=== PATIENT | male | born 1950 | race Caucasian/White ===

== ENCOUNTER 2019-07-18 09:32 | Observation (INO) | payer MEDICARE, OTHER, SELFPAY ==
[2019-07-18] VITALS (16 sets, daily range): BP systolic 121–152; BP diastolic 72–103; PULSE 69–143; RESP 16–23; TEMP 36.4–36.7; O2SAT 92–96; BMI 31.6
--- NOTE | 2019-07-18 09:51 | ED_ITS ---
Entered by Tiana Thomson, acting as scribe for Angel Parry DO HPI - Chest Pain General: Chief Complaint: Chest Pain Stated Complaint: chest pain Time Seen by Provider: 07/18/19 09:55 Source: patient Mode of arrival: ambulatory Limitations: no limitations History of Present Illness: HPI narrative: 68 yo m came to the er pov for chest pain. Onset was 4-5 days ago. Pt states that he has had the chest pain and left arm pain for 4-5 days ago. Pt states that he has had some sob. MD complaint: chest pain Pertinent past history: other (HTN) Onset (ago): day(s) (4-5 days ago) Prior episodes: No Onset: during rest Pain radiation: left arm Severity: mild Quality: dull and other (pain) Relieving factors: nothing Exacerbating factors: nothing and exertion Associated symptoms: Deny abdominal pain, dyspnea, fever(s), nausea or vomiting Risk Factors: Coronary artery disease risk factors: smoking history (quit smoking 12 years ago) and hypertension Thoracic aortic dissection risk factors: none Review of Systems Const: Denies: fever ENMT: Denies: throat pain, ear pain, nasal discharge or nasal congestion Card: Denies: chest pain, edema, shortness of breath on exertion or shortness of breath when lying down Resp: Denies: shortness of breath GI: Denies: abdominal pain, nausea or vomiting : Denies: flank pain, painful urination, urinary frequency or urinary ur gency Skin/Breast: Denies: rash or itching PFSH ED PFSH: Statuses (acute, chronic, etc) shown below reflect problem list status as previously entered and may not be historically accurate Medical History Cataract (Acute) Former smoker (Acute) quit smoking in 2010 HTN (hypertension) (Resolved) -VSS; continue to monitor vital signs -currently normotensive, will resume HCTZ, hold ACEi Obesity (BMI 30.0-34.9) (Acute) -Obesity: BMI-32 kg/m2 Obstructive sleep apnea (Acute) Surgical History S/P left knee arthroscopy (Acute) hx of L knee arthroscopy for torn meniscus in 2006 Family History Mother CAD (coronary artery disease) Stroke Brother CAD (coronary artery disease) Social History Smoking and tobacco status: former smoker Quit status (tobacco): has quit using tobacco Alcohol intake: never Lives independently: Yes Household members: spouse Marital status: Current occupational status: retired Physical Exam Const: COMMON NORMALS: no apparent distress GENERAL APPEARANCE: cooperative and comfortable ORIENTATION/CONSCIOUSNESS: Yes awake, Yes oriented to person, Yes oriented to place and Yes oriented to time HENMT: COMMON NORMALS: normocephalic, head/scalp atraumatic, hearing grossly normal bilaterally, external ears normal, EAC's normal, TM's normal bilaterally, nasal mucous membranes and turbinates normal, moist oral mucous membranes and oropharynx normal HEAD & SCALP: normocephalic and atraumatic NOSE: nasal mucous membranes and turbinates normal EXTERNAL EAR: Yes external ears normal EXTERNAL AUDITORY CANAL: EAC's normal TYMPANIC MEMBRANE: TM's normal bilaterally Eye: COMMON NORMALS: PERRL, EOMs intact bilaterally, conjunctivae normal and no scleral icterus CONJUNCTIVA: Yes conjunctivae normal PUPIL: Yes PERRL Neck/C-Spine: COMMON NORMALS: full ROM, no lymphadenopathy, supple and no JVD Lymph: LYMPHATIC: no lymphadenopathy noted and no lymphedema noted Resp: COMMON NORMALS: normal respiratory effort, no retractions, no use of accessory muscles and clear to auscultation bilaterally AUSCULTATION: clear to auscultation bilaterally Cardio: COMMON NORMALS: no JVD, regular rate, regular rhythm and no murmurs RATE: regular rate RHYTHM: regular rhythm Extremity: COMMON NORMALS: normal to inspection, normal capillary refill, no clubbing, cyanosis or edema, no calf tenderness and no pedal edema Neuro: SENSORIUM/ORIENTATION: Yes oriented to person, Yes oriented to place and Yes oriented to time Skin: COMMON NORMALS: no rashes or lesions noted GENERAL SKIN EXAM: no rashes or lesions noted Course Consultations: Time: 13:22 Consultation #2: Time: 13:30 Consultation #3: Vital Signs: Vital signs: Vital Signs Temperature 97.6 F 07/19/19 15:49 Pulse Rate 76 01/10/20 15:36 Respiratory Rate 18 07/19/19 15:49 Blood Pressure 142/87 07/19/19 15:36 Pulse Oximetry 94 07/19/19 15:49 MDM - Chest Pain Lab Data: Labs: Lab Results 07/18/19 07/18/19 07/18/19 Range/Units 09:58 09:58 09:58 WBC 7.2 (4.0-10.0) 10^3/ uL RBC 4.93 (4.1-5.3) 10^6/u L Hgb 14.4 (11.7-16.6) g/dL Hct 45.3 (42.0-52.0) % MCV 91.9 (80-94) fL MCH 29.2 (28.0-34.0) pg MCHC 31.8 (30.0-36.0) g/dL RDW 12.4 (12.1-15.1) % Plt Count 292 (130-400) 10^3/c mm MPV 10.3 (7.4-10.4) fL Neut % (Auto) 63.7 % Lymph % (Auto) 20.3 % [place] % (Auto) 12.9 % Eos % (Auto) 1.7 % Baso % (Auto) 0.8 % Neut # (Auto) 4.6 (1.8-7.7) 10^3/u L Lymph # (Auto) 1.5 (0.8-4.8) 10^3/u L [place] # (Auto) 0.9 (0.2-0.9) 10^3/u L Eos # (Auto) 0.1 (0.0-0.8) 10^3/u L Baso # (Auto) 0.1 (0.0-0.1) 10^3/u L Nucleated RBC % (a uto) 0 % Nucleated RBCs # 0.0 /100WBC PT 13.50 H (10.5-13.3) SECO NDS INR 1.00 (0.8-1.2) APTT 30.1 (23.9-36.7) SECO NDS Sodium 138 (136-145) mmol/L Potassium 4.2 (3.5-5.1) mmol/L Chloride 101 (98-107) mmol/L Carbon Dioxide 27 (22-29) mmol/L Anion Gap 14.2 (5-19) BUN 10 (8-23) mg/dL Creatinine 0.6 L (0.7-1.2) mg/dL GFR Calculation 134.0 H (90-130) mL/min Glucose 106 (74-106) mg/dL Calcium 9.3 (8.8-10.2) mg/Dl Total Bilirubin 0.3 (0.15-1.2) mg/dL AST 14 (0-40) U/L ALT 10 (0-41) U/L Alkaline Phosphata se 84 (40-130) IU/L Troponin T Baselin e (0-15) ng/mL Troponin T 120 Min marifer (0-15) ng/mL Delta Troponin T (0-10) ABS# Total Protein 6.4 L (6.6-8.7) g/dL Albumin 3.9 (3.5-5.2) g/dL Globulin 2.5 (1.3-4.6) g/dL 07/18/19 07/18/19 Range/Units 09:58 12:00 WBC (4.0-10.0) 10^3/ uL RBC (4.1-5.3) 10^6/u L Hgb (11.7-16.6) g/dL Hct (42.0-52.0) % MCV (80-94) fL MCH (28.0-34.0) pg MCHC (30.0-36.0) g/dL RDW (12.1-15.1) % Plt Count (130-400) 10^3/c mm MPV (7.4-10.4) fL Neut % (Auto) % Lymph % (Auto) % [place] % (Auto) % Eos % (Auto) % Baso % (Auto) % Neut # (Auto) (1.8-7.7) 10^3/u L Lymph # (Auto) (0.8-4.8) 10^3/u L [place] # (Auto) (0.2-0.9) 10^3/u L Eos # (Auto) (0.0-0.8) 10^3/u L Baso # (Auto) (0.0-0.1) 10^3/u L Nucleated RBC % (a uto) % Nucleated RBCs # /100WBC PT (10.5-13.3) SECO NDS INR (0.8-1.2) APTT (23.9-36.7) SECO NDS Sodium (136-145) mmol/L Potassium (3.5-5.1) mmol/L Chloride (98-107) mmol/L Carbon Dioxide (22-29) mmol/L Anion Gap (5-19) BUN (8-23) mg/dL Creatinine (0.7-1.2) mg/dL GFR Calculation (90-130) mL/min Glucose (74-106) mg/dL Calcium (8.8-10.2) mg/Dl Total Bilirubin (0.15-1.2) mg/dL AST (0-40) U/L ALT (0-41) U/L Alkaline Phosphata se (40-130) IU/L Troponin T Baselin e 7 (0-15) ng/mL Troponin T 120 Min marifer 6.00 (0-15) ng/mL Delta Troponin T -1.00 L (0-10) ABS# Total Protein (6.6-8.7) g/dL Albumin (3.5-5.2) g/dL Globulin (1.3-4.6) g/dL Imaging Data^: CXR: Radiologist's impression: [address] [address] XRay Report Signed Patient: Elton Lal JMR#: [id number] : 1Acct:[id number] Age/Sex: 68 / MADM Date: 07/18/19 Loc: ER Attending Dr: Ordering Physician: Angel Parry DO Date of Service: 07/18/19 Procedure(s): XR chest 1V portable [id number] Accession Number(s): [id number] Report Number: [id number] WS: [id number] Portable AP upright chest, 07/18/2019 Clinical Data: chest pain Comparison: PA and lateral chest, 06/19/2014. Findings: No nodules, masses or effusions are seen. The heart is normal. The pulmonary vascularity is not increased. No pneumonia or pneumothorax is seen. The diaphragms are flattened. There is left pleural reaction and minimal left lateral lower pleural thickening unchanged. There is a monitor lead on the chest wall. The aortic arch and descending aorta are minimally tortuous. XR/XR chest 1V portable [id number] Impression: Hyperinflation and atherosclerosis. Dictated By:Ann Marie Lua MD Discharge Plan Discharge Patient Disposition: Admitted As Inpatient Admit Provider: Caren Sosa Clinical Impression: Chest pain Condition: Stable Discharge Orders: Discharge Order (Routine); Ordered 07/19/19 Ordered By: Caren Sosa Referrals: Milla Kan MD [Primary Care Provider] - 4-7 days (You have a follow up appointment with Dr. Arias on Jul 23 at 10am) Discharge Diet: Low Salt Discharge Activity: Resume usual activity Patient Instructions: Chest Pain - Noncardiac, Nitroglycerin, Rapid Release (By mouth), Hypertension, Obesity (DC) Additional Instructions: -Please seek medical attention immediately should any of your symptoms return Interventions: ED Discharge Assessment Last Done: 07/18/19 15:38 Discharge Date/Time: 07/18/19 15:38 Coding Level of Care Code ED Corrections Unit Supervisor for Chg Fwd Exam Problem Focused The documentation recorded by the Berto bain Stephanie Lyn, accurately reflects the service I personally performed and the decisions made by Brinda hernandez Curtis L, DO Jul 18, 2019 09:32
--- NOTE | 2019-07-18 10:22 | ECG_ITS ---
Measurements Intervals [place] Rate: 76 P: 69 ID: [id number] QRS: 29 QRSD: 89 T: 64 QT: 379 QTc: 427 SINUS RHYTHM SEPTAL MYOCARDIAL INFARCTION , PROBABLY OLD [40+ ms Q WAVE IN V1/V2] Compared to ECG 01/14/2018 05:01:02 Myocardial infarct finding now present Sinus arrhythmia no longer present Electronically Signed On 07-18-2019 13:47:32 EMPLOYMENT APPEALS EXAMINER by Ro Santiago M.D. [id number]
--- NOTE | 2019-07-18 10:22 | XR_ITS ---
WS: [id number] Portable AP upright chest, 07/18/2019 Clinical Data: chest pain Comparison: PA and lateral chest, 06/19/2014. Findings: No nodules, masses or effusions are seen. The heart is normal. The pulmonary vascularity is not increased. No pneumonia or pneumothorax is seen. The diaphragms are flattened. There is left ple ural reaction and minimal left lateral lower pleural thickening unchanged. There is a monitor lead on the chest wall. The aortic arch and descending aorta are minimally tortuous. XR/XR chest 1V portable [id number] Impression: Hyperinflation and atherosclerosis.
[2019-07-18 10:41] LABS: Basophils # 0.1 10^3/uL (0.0-0.1); Basophils % 0.8 %; Eosinophils # 0.1 10^3/uL (0.0-0.8); Eosinophils % 1.7 %; Hematocrit 45.3 % (42.0-52.0); Hemoglobin 14.4 g/dL (11.7-16.6); Lymphocytes # 1.5 10^3/uL (0.8-4.8); Lymphocytes % 20.3 %; Mean Corpuscular HGB Conc 31.8 g/dL (30.0-36.0); Mean Corpuscular Hemoglobin 29.2 pg (28.0-34.0); Mean Corpuscular Volume 91.9 fL (80-94); Mean Platelet Volume 10.3 fL (7.4-10.4); Monocytes # 0.9 10^3/uL (0.2-0.9); Monocytes % 12.9 %; Neutrophils # 4.6 10^3/uL (1.8-7.7); Neutrophils % 63.7 %; Nucleated Red Blood Cells % 0 %; Platelet Count 292 10^3/cmm (130-400); Red Blood Count 4.93 10^6/uL (4.1-5.3); Red Cell Distribution Width 12.4 % (12.1-15.1); White Blood Count 7.2 10^3/uL (4.0-10.0)
[2019-07-18] MEDS: sodium chloride 0.9% 1,000 ML 999 ML IV (10:44)
[2019-07-18] MEDS: aspirin 325 mg Tablet PO (10:45)
[2019-07-18] MEDS: nitroglycerin 1 gm/inch oint Pkt 1 INCH TOPICAL (10:46)
[2019-07-18 10:52] LABS: Partial Thromboplastin Time 30.1 SECONDS (23.9-36.7)
[2019-07-18 10:56] LABS: Troponin(5th) Baseline 7 ng/mL (0-15)
[2019-07-18 11:22] LABS: Alanine Aminotransferase 10 U/L (0-41); Albumin Level 3.9 g/dL (3.5-5.2); Alkaline Phosphatase 84 IU/L (40-130); Anion Gap 14.2 (5-19); Aspartate Amino Transferase 14 U/L (0-40); Blood Urea Nitrogen 10 mg/dL (8-23); Calcium 9.3 mg/Dl (8.8-10.2); Carbon Dioxide 27 mmol/L (22-29); Chloride 101 mmol/L (98-107); Globulin 2.5 g/dL (1.3-4.6); Glucose 106 mg/dL (74-106); Potassium 4.2 mmol/L (3.5-5.1); Sodium 138 mmol/L (136-145); Total Bilirubin 0.3 mg/dL (0.15-1.2); Total Protein 6.4 g/dL (6.6-8.7)
--- NOTE | 2019-07-18 12:22 | ECG_ITS ---
Measurements Intervals [place] Rate: 67 P: 24 VA: 174 QRS: 31 QRSD: 84 T: 53 QT: 389 QTc: 413 SINUS RHYTHM LOW QRS VOLTAGE IN EXTREMITY LEADS [QRS DEFLECTION < 0.5 mV IN LIMB LEADS] SEPTAL MYOCARDIAL INFARCTION [40+ ms Q WAVE IN V1/V2], PROBABLY OLD Compared to ECG 07/18/2019 12:30:05 Myocardial infarct finding now present Sinus arrhythmia no longer present Electronically Signed On 07-18-2019 19:05:49 WASTEWATER TECHNICIAN by Ro Santiago M.D. [id number]
[2019-07-18] MEDS: sodium chloride 0.9% 500 ML 999 ML IV (13:30)
--- NOTE | 2019-07-18 14:13 | PM.HP ---
Providers/Chief Complaint Primary Care Provider: Milla Kan MD Chief Complaint: chest pain History of Present Illness Elton Lal is a 68 year old male with PMHx of HTN, Former smoker, Obesity, LOAN, presents from home for evaluation of chest pain that has been ongoing x 4-5 days. He is unable to fully describe the chest discomfort other than nagging pain, states that it was left-sided with radiation to the left arm, constant, rated as 2 out of 10; with some associated mild shortness of breath with exertion and feeling hot. He denies any lightheadedness, diaphoresis, cough, fever/chills, abdominal pain, nausea/vomiting, lower extremity swelling, changes to his urination or bowel habits, changes in his appetite. He denies any prior episodes of the same. He is a former smoker, quit approximately 9 years ago. He does have a positive family history of heart disease in both his brothers and in his mother. He denies having had any cardiac work-up in the past including stress testing. He intermittently checks his blood pressure at home though he admits that it is been a while since he has done this. He did not take his blood pressure medications prior to coming to the hospital. He did drive himself to the hospital accompanied by his . He did not take any medications such as nitroglycerin or aspirin prior to coming to the hospital. He is currently chest pain-free during my evaluation in the ER, is at bedside. He was initially quite hypertensive with noted blood pressure of 130s over 100s. He is currently normotensive. Initial troponins are negative, chest pain was relieved after nitroglycerin ointment. I discussed having stress testing done which patient is agreeable to. Due to being high risk for possible CAD patient is being admitted for further evaluation. Review of Systems Const: Denies: fever, chills, body aches, change in appetite or fatigue Eyes: Denies: change in vision ENMT: Denies: dry mouth Card: Reports: chest pain ( nagging left sided chest discomfrort) and shortness of breath on exertion (mild); Denies: palpitations, edema or lightheadedness Resp: Denies: productive cough or pain on inspiration GI: Denies: abdominal pain, nausea, vomiting, difficulty swallowing, constipation or blood in stool : Denies: difficulty urinating or blood in urine Musc: Reports: extremity pain (left arm pain) Skin/Breast: Denies: rash Neuro: Denies: headache or weakness in extremities Medications/Allergies Home Medications Medication Instructions Recorded Confirmed Last Taken Type aspirin [Aspir-81] 81 mg PO DAILY 07/18/19 07/18/19 07/17/19 History enalapril-hydrochlorothiazide 1 tab PO DAILY 07/18/19 07/18/19 07/17/19 History ketorolac See Rx Instructions .ROUTE .COMPLEX 07/18/19 07/18/19 07/17/19 History Allergies Allergy/AdvReac Type Severity Reaction Status Date / Time No Known Drug Allergies Allergy Unknown Verified 07/18/19 09:41 PFSH Acute PFSH: Statuses (acute, chronic, etc) shown below reflect problem list status as previously entered and may not be historically accurate Medical History (Updated 07/18/19 @ 14:27 by Caren Sosa MD) Former smoker (Acute) quit smoking in 2010 HTN (hypertension) (Acute) Obesity (BMI 30.0-34.9) (Acute) Obstructive sleep apnea (Acute) Surgical History (Updated 07/18/19 @ 14:22 by Caren Sosa MD) S/P left knee arthroscopy (Acute) hx of L knee arthroscopy for torn meniscus in 2006 Family History (Updated 07/18/19 @ 14:23 by Caren Sosa MD) Mother CAD (coronary artery disease) Stroke Brother CAD (coronary artery disease) Social History (Updated 07/18/19 @ 14:24 by Caren Sosa MD) Smoking and tobacco status: former smoker Quit status (tobacco): has quit using tobacco Alcohol intake: never Substance/Drug Use: never Lives independently: Yes Household members: spouse Marital status: Current occupational status: retired Vitals/I&O/Wt Last Vital Signs Temp 97.6 F 07/18/19 09:42 Pulse 75 07/18/19 12:59 Resp 16 07/18/19 12:59 BP 121/80 07/18/19 12:59 Pulse Ox 93 07/18/19 12:59 Weight last 48 hrs Weight 94.347 kg Physical Exam Const: COMMON NORMALS: no apparent distress and oriented x3 GENERAL APPEARANCE: cooperative and comfortable NUTRITIONAL APPEARANCE: obese ORIENTATION/CONSCIOUSNESS: Yes awake HENMT: COMMON NORMALS: normocephalic, head/scalp atraumatic, hearing grossly normal bilaterally and moist oral mucous membranes HEAD & SCALP: normocephalic and atraumatic Eye: COMMON NORMALS: PERRL, EOMs intact bilaterally and conjunctivae normal CONJUNCTIVA: Yes conjunctivae normal PUPIL: Yes PERRL Neck/C-Spine: COMMON NORMALS: full ROM GENERAL: Yes normal visual inspection and Yes trachea midline Chest: COMMONS NORMALS: inspection of chest normal and palpation of chest normal CHEST: Yes symmetrical chest wall rise Resp: COMMON NORMALS: normal respiratory effort, no retractions, no use of accessory muscles and clear to auscultation bilaterally EFFORT & INSPECTION: Yes able to speak in complete sentences, Yes symmetric chest movement and No tachypneic AUSCULTATION: clear to auscultation bilaterally Cardio: COMMON NORMALS: regular rate, regular rhythm, S1 normal heart sound, S2 normal heart sound and no murmurs RATE: regular rate RHYTHM: regular rhythm HEART SOUNDS: S1 normal and S2 normal GI: COMMON NORMALS: normal to inspection, nondistended, normoactive bowel sounds, soft to palpation and non-tender INSPECTION: Yes central obesity PALPATION: Yes soft Extremity: COMMON NORMALS: normal to inspection, full ROM and no clubbing, cyanosis or edema; negative for no pedal edema Neuro: COMMON NORMALS: oriented x3, moves all extremities, no focal motor deficits and no sensory deficits noted Psych: COMMON NORMALS: mental status grossly normal, thought process normal, cooperative, affect normal and speech normal SPEECH: Yes normal speech THOUGHT PROCESS: normal thought process Skin: COMMON NORMALS: no rashes or lesions noted, no jaundice, no petechiae and no mottling GENERAL SKIN EXAM: no rashes or lesions noted Data Imaging^: CXR: My impression: unremarkable for any acute findings Other Data: Other data: Noted troponin A&P Assessment and plan (1) Chest pain in adult: -chest pain, from history provided, sounds typical -risk factors for CAD include age, hx of smoking, +FHx, obesity, HTN -trend troponins, serial ECGs -ANNABELLE -monitor vital signs -telemetry monitoring -order lipid panel, TSH, A1c for risk stratification -resume aspirin -is currently chest pain free -stress testing in AM, keep NPO after midnight Status: Acute Code(s): R07.9 - Chest pain, unspecified (2) HTN (hypertension): -monitor vital signs -currently normotensive, will resume HCTZ, hold ACEi Status: Acute Code(s): I10 - Essential (primary) hypertension (3) Obesity (BMI 30.0-34.9): -Obesity: BMI-32 kg/m2 Status: Acute Code(s): E66.9 - Obesity, unspecified Additional A&P Information Additional A&P Information: -Former smoker -hx of LOAN -cardiac diet as tolerated -encourage ambulation as tolerated -DVT ppx not needed as low risk -Dispo: home -Code status: FULL code Attestations Medical Necessity Statement*: Elton Lal's hospital stay will be less than 2 midnights for evaluation of typical chest pain including stress testing, telemetry monitoring. Time Spent in Patient Care: Greater than 35 minutes (>than 50% of time spent in counselling and/or direct pt care on unit). Coding Level of Care Code Acute Nail Welter for Chg Fwd Diagnoses Chest pain in adult R07.9 HTN (hypertension) I10 Obesity (BMI 30.0-34.9) E66.9
--- NOTE | 2019-07-18 14:36 | ECG_ITS ---
NAME OF STUDY: LEXISCAN SESTAMIBI STRESS TEST INDICATION: TYPICAL CHEST PAIN, PROCEDURE: At the baseline, the EKG revealed normal sinus rhythm with a poor R wave progression. Some nonspecific T wave changes. The baseline blood pressure was 129/77 mm Hg with a heart rate of 72 beats/min. Lexiscan was infused over a period of 20 seconds. A total of 0.4 milligrams of Lexiscan was infused. The stress phase was continued for a total of 5 minutes. Heart rate at the end of the stress phase was 85 with a blood pressure of 127/70. The EKG at the peak infusion revealed no significant changes. Sestamibi was injected 20 seconds after the Lexiscan infusion. Blood pressure at the end of the recovery phase was not performed with a heart rate of 84 per minute. CONCLUSION: 1. No significant EKG changes with the LexiScan infusion 2. No LexiScan induced chest pain or cardiac arrhythmia 3. Normal blood pressure and heart rate response 4. Sestamibi/sestamibi perfusion scan pending; see separate report. Electronically Signed On 07-19-2019 15:03:39 BINDING PRINTER by Dung Marroquin M.D. [id number]
--- NOTE | 2019-07-18 16:22 | ECG_ITS ---
Measurements Intervals [place] Rate: 65 P: 23 SC: 156 QRS: 19 QRSD: 102 T: 62 QT: 428 QTc: 446 SINUS RHYTHM WITH SINUS ARRHYTHMIA LOW QRS VOLTAGE IN PRECORDIAL LEADS [QRS DEFLECTION < 1.0 mV IN CHEST LEADS] Compared to ECG 01/14/2018 05:01:02 No significant changes Electronically Signed On 07-18-2019 13:56:33 STATE DIRECTOR by Ro Santiago M.D. [id number]
[2019-07-18 19:27] LABS: Troponin 5 6HR 7.48 ng/L (0-15)
[2019-07-19] VITALS (8 sets, daily range): BP systolic 124–142; BP diastolic 73–87; PULSE 67–85; RESP 18–20; TEMP 36.4–36.6; O2SAT 84–97
--- NOTE | 2019-07-19 | NMCV_ITS ---
NM MIBI/MIBI Stress/Rest [id number] [place], Max Age: 68 Gender: M : 1950 Exam Date: 07/19/2019 06:47 Ordering Phys: Caren Sosa MD Technologist: KAVIN Briggs Exam Location: [facility] Indications: Chest Pain STRESS TEST Please see separate stress test report in [facility] for full findings IMAGE PROTOCOL Rest/Stress 1 Lexiscan Day Radiopharmaceutical Dose (mCi) Administration Site Administered by Rest: Tc-99m 10.1 IV KAVIN Briggs Sestamibi Stress:Tc-99m 32.6 IV KAVIN Briggs Sestamibi Rest: 19-Jul-2019 60 Discovery 630 Stress: 19-Jul-2019 60 Discovery 630 0.4mg Lexiscan. Images obtained in supine and prone position. SPECT RESULTS Technical Quality: Good Raw Data Analysis: Normal, Soft tissue attenuation Image Corrections: No attenuation or motion correction applied Summed Stress Score: 5 Summed Rest Score: 8 Summed Difference Score: 0 PERFUSION FINDINGS Large area of patchy decreased tracer uptake noted in basal to distal inferior and inferoseptal distal apical and basal anterior wall on the rest images which improved significantly over stress images suggestive of artifact. FUNCTIONAL RESULTS (calculated via Gated SPECT) Stress Image LV EF (%): 66 Stress EDV (mL):97 TID: 1.23 Stress ESV (mL):33 Rest Image LV EF (%): 66 FUNCTIONAL FINDINGS: There is normal left ventricular systolic function. IMPRESSIONS This study is negative for ischemia. TID ratio is elevated which could be secondary to left ventricle hypertrophy/subendocardial ischemia in the absence of other parameters. EKG segment will be documented separately. Connie Angela MD (Electronically Signed) Final Date: 19 July 2019 13:15 S
[2019-07-19 06:33] LABS: Chol HDL Ratio 3.86 mg/dL (1.0-5.00); Cholesterol 166 mg/dL (0-200); HDL Cholesterol 43 mg/dL (60-100); LDL Cholesterol Calculated 104 mg/dL (50-129); LDL HDL Ratio 2.42 RATIO (0.00-3.22); Triglycerides 94 mg/dL (0-150)
[2019-07-19 08:02] LABS: Thyroid Stimulating Hormone 2.35 uIU/mL (0.27-4.20)
[2019-07-19] MEDS: regadenoson 0.4 Mg/5 ml Syringe IVP (08:02)
--- NOTE | 2019-07-19 08:39 | P.DS_ITS ---
Discharge Providers Date of Admission: 07/18/19 13:22 Date of Discharge: 07/19/19 Attending Provider at Admission: Caren Sosa MD Attending Provider at Discharge: Caren Sosa MD Primary Care Provider: Milla Kan MD Diagnoses at Discharge Discharge Diagnosis (1) Chest pain in adult: Status: Acute Problem details: -chest pain, from history provided, sounds typical -risk factors for CAD include age, hx of smoking, +FHx, obesity, HTN -troponins noted with negative delta x 6hrs, serial ECGs reviewed -ANNABELLE -VSS;continue to monitor vital signs -telemetry monitoring -noted lipid panel, TSH, A1c -on aspirin -is currently chest pain free -stress testing in AM; negative (2) HTN (hypertension): Status: Acute Problem details: -VSS; continue to monitor vital signs -currently normotensive, will resume HCTZ, hold ACEi Qualifiers: Hypertension type: essential hypertension Qualified Code(s): I10 - Essential (primary) hypertension (3) Obesity (BMI 30.0-34.9): Status: Acute Problem details: -Obesity: BMI-32 kg/m2 Other Information Additional DC diagnoses/information: -Former smoker -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 He had his troponins trended and serial EKGs done as part of the chest pain rule out ACS work-up. Due to concern that he may have had an angina equivalent he had a chemical stress test done is negative for coronary ischemia. He has been chest pain-free during his hospital stay. He has been hemodynamically stable, afebrile and ambulatory. Lipid panel, TSH are within normal limits. He will need to follow-up with his primary care provider within 1 week and is encouraged to seek medical attention immediately should any of his symptoms return. Physical Exam Const: COMMON NORMALS: no apparent distress and oriented x3 GENERAL ABDIRAHMAN EARANCE: cooperative and comfortable NUTRITIONAL APPEARANCE: obese ORIENTATION/CONSCIOUSNESS: Yes awake HENMT: COMMON NORMALS: normocephalic, head/scalp atraumatic, hearing grossly normal bilaterally and moist oral mucous membranes HEAD & SCALP: normocephalic and atraumatic Eye: COMMON NORMALS: PERRL, EOMs intact bilaterally and conjunctivae normal CONJUNCTIVA: Yes conjunctivae normal PUPIL: Yes PERRL Neck/C-Spine: COMMON NORMALS: full ROM GENERAL: Yes normal visual inspection and Yes trachea midline Chest: COMMONS NORMALS: inspection of chest normal and palpation of chest normal CHEST: Yes symmetrical chest wall rise Resp: COMMON NORMALS: normal respiratory effort, no retractions, no use of accessory muscles and clear to auscultation bilaterally EFFORT & INSPECTION: Yes able to speak in complete sentences, Yes symmetric chest movement and No tachypneic AUSCULTATION: clear to auscultation bilaterally Cardio: COMMON NORMALS: regular rate, regular rhythm, S1 normal heart sound, S2 normal heart sound and no murmurs RATE: regular rate RHYTHM: regular rhythm HEART SOUNDS: S1 normal and S2 normal GI: COMMON NORMALS: normal to inspection, nondistended, normoactive bowel sounds, soft to palpation and non-tender INSPECTION: Yes central obesity PALPATION: Yes soft Extremity: COMMON NORMALS: normal to inspection, full ROM and no clubbing, cyanosis or edema; negative for no pedal edema Neuro: COMMON NORMALS: oriented x3, moves all extremities, no focal motor deficits and no sensory deficits noted Psych: COMMON NORMALS: mental status grossly normal, thought process normal, cooperative, affect normal and speech normal SPEECH: Yes normal speech THOUGHT PROCESS: normal thought process Skin: COMMON NORMALS: no rashes or lesions noted, no jaundice, no petechiae and no mottling GENERAL SKIN EXAM: no rashes or lesions noted Discharge Data Data Completed and Pending: Completed Studies During Hospitalization Category Date Time Status XR chest 1V neto ble [id number] Urgent Exams 07/18/19 10:22 Completed Pending at discharge Category Date Time Status Sestamibi Stress Test Request Amanda ne Exams 07/18/19 14:36 Ordered Hemoglobin A1C Ro utine Lab 07/19/19 05:40 Received NM misty perf SPECT r&s* [id number] Routin e Nuc Med 07/19/19 Ordered Labs from last 24 hours 07/19/19 07/19/19 07/18/19 05:40 05:40 16:30 WBC RBC Hgb Hct MCV MCH MCHC RDW Plt Count MPV Neut % (Auto) Lymph % (Auto) [place] % (Auto) Eos % (Auto) Baso % (Auto) Neut # (Auto) Lymph # (Auto) [place] # (Auto) Eos # (Auto) Baso # (Auto) Nucleated RBC % (a uto) Nucleated RBCs # PT INR APTT Sodium Potassium Chloride Carbon Dioxide Anion Gap BUN Creatinine GFR Calculation Glucose Calcium Total Bilirubin AST ALT Alkaline Phosphata se Troponin I 6 Hour 7.48 Troponin I Hi Sens Del Not Reportable Troponin T Baselin e Troponin T 120 Min teller Delta Troponin T Total Protein Albumin Globulin Triglycerides 94 Cholesterol 166 LDL Cholesterol, C alc 104 HDL Cholesterol 43 L LDL/HDL Ratio 2.42 Cholesterol/HDL Ra kaden 3.86 TSH 2.35 07/18/19 07/18/19 07/18/19 12:00 09:58 09:58 WBC RBC Hgb Hct MCV MCH MCHC RDW Plt Count MPV Neut % (Auto) Lymph % (Auto) [place] % (Auto) Eos % (Auto) Baso % (Auto) Neut # (Auto) Lymph # (Auto) [place] # (Auto) Eos # (Auto) Baso # (Auto) Nucleated RBC % (a uto) Nucleated RBCs # PT INR APTT Sodium 138 Potassium 4.2 Chloride 101 Carbon Dioxide 27 Anion Gap 14.2 BUN 10 Creatinine 0.6 L GFR Calculation 134.0 H Glucose 106 Calcium 9.3 Total Bilirubin 0.3 AST 14 ALT 10 Alkaline Phosphata se 84 Troponin I 6 Hour Troponin I Hi Sens Del Troponin T Baselin e 7 Troponin T 120 Min teller 6.00 Delta Troponin T -1.00 L Total Protein 6.4 L Albumin 3.9 Globulin 2.5 Triglycerides Cholesterol LDL Cholesterol, C alc HDL Cholesterol LDL/HDL Ratio Cholesterol/HDL Ra kaden TSH 07/18/19 07/18/19 09:58 09:58 WBC 7.2 RBC 4.93 Hgb 14.4 Hct 45.3 MCV 91.9 MCH 29.2 MCHC 31.8 RDW 12.4 Plt Count 292 MPV 10.3 Neut % (Auto) 63.7 Lymph % (Auto) 20.3 [place] % (Auto) 12.9 Eos % (Auto) 1.7 Baso % (Auto) 0.8 Neut # (Auto) 4.6 Lymph # (Auto) 1.5 [place] # (Auto) 0.9 Eos # (Auto) 0.1 Baso # (Auto) 0.1 Nucleated RBC % (a uto) 0 Nucleated RBCs # 0.0 PT 13.50 H INR 1.00 APTT 30.1 Sodium Potassium Chloride Carbon Dioxide Anion Gap BUN Creatinine GFR Calculation Glucose Calcium Total Bilirubin AST ALT Alkaline Phosphata se Troponin I 6 Hour Troponin I Hi Sens Del Troponin T Baselin e Troponin T 120 Min teller Delta Troponin T Total Protein Albumin Globulin Triglycerides Cholesterol LDL Cholesterol, C alc HDL Cholesterol LDL/HDL Ratio Cholesterol/HDL Ra kaden TSH Vitals: Last Vital Signs Temp 97.8 F 07/19/19 04:29 Pulse 85 07/19/19 08:16 Resp 20 H 07/19/19 04:29 BP 124/74 07/19/19 08:16 Pulse Ox 97 07/19/19 04:29 Discharge Plan Discharge Patient Disposition: Home, Self-Care Condition: Stable Prescriptions: New nitroglycerin 0.4 mg tablet, sublingual 0.4 mg SUBLINGUAL Q5M PRN (Reason: chest pain) Qty: 30 RF: 0 Continued enalapril-hydrochlorothiazide 5-12.5 mg tablet 1 tab PO DAILY RF: 0 Aspir-81 81 mg Tablet,Delayed Release (Dr/Ec) 81 mg PO DAILY RF: 0 ketorolac 0.5 % drops See Rx Instructions .ROUTE .COMPLEX RF: 0 Discharge Orders: Discharge Order (Routine); Ordered 07/19/19 Ordered By: Caren Sosa Referrals: Milla Kan MD [Primary Care Provider] - 4-7 days Discharge Diet: Low Salt Discharge Activity: Resume usual activity Activity Restrictions/Additional Instructions: -Please seek medical attention immediately should any of your symptoms return Discharge Attestations Time Spent in Discharge Care*: greater than 30 min Specific Discharge Activities: Specific discharge activities: educating patient and evaluating patient/reviewing data Quality Metrics Clinical Quality Measures During this hospital stay, did patient experience: None Coding Level of Care Code Acute Area Operations Director for Chg Fwd Exam Problem Focused Diagnoses Chest pain in adult R07.9 HTN (hypertension) I10 Hypertension type: essential hypertension Obesity (BMI 30.0-34.9) E66.9
[2019-07-19 08:40] LABS: Estmated Average Glucose 117; Hemoglobin A1C 5.7 % (4.0-6.0)
[2019-07-19] MEDS: aspirin 81 mg Chew Tablet PO (09:00)
[2019-07-19] MEDS: hydroCHLOROthiazide 25 mg Tablet 12.5 MG PO (09:00)
--- NOTE | 2019-07-19 09:04 | PC.NURSE ---
pt off floor for testing
== END 2019-07-19 16:13 | disposition home or self-care (01) ==
LOC: ER 14:34 → MEDSURG 15:21
PROVIDERS: Admitting Provider Family Medicine; Emergency Provider Family Medicine; Family Provider Family Medicine; PCP Family Medicine; Visit Provider Family Medicine
DX: R07.89 Other chest pain (principal); I10 Essential (primary) hypertension; E66.9 Obesity, unspecified; Z68.32 Body mass index [BMI] 32.0-32.9, adult; G47.33 Obstructive sleep apnea (adult) (pediatric); Z87.891 Personal history of nicotine dependence; Z79.82 Long term (current) use of aspirin; Z96.652 Presence of left artificial knee joint; Z82.49 Family history of ischemic heart disease and other diseases of the circulatory system
CPT/HCPCS: 36415; 71045; 78452; 80053; 80061; 83036; 84443; 84484; 85025; 85610; 85730; 93005; 93017; 96361; 96374; 96375; 99283; 99285; A9500; G0378; J2785; J7030; J7040

== ENCOUNTER 2021-06-17 09:37 | Emergency (ER) | payer MEDICARE, OTHER, SELFPAY ==
[2021-06-17 09:45] VITALS: BP 156/84; PULSE 95; RESP 20; TEMP 36.7; O2SAT 88; BMI 32.5
--- NOTE | 2021-06-17 09:59 | ED_ITS ---
HPI - SOB/Dyspnea General: Chief Complaint: Shortness of Breath/Dyspnea Stated Complaint: LOW O2 Time Seen by Provider: 06/17/21 09:58 History of Present Illness: HPI Narrative: 70-year-old presents to shortness of breath. He is a previous smoker. Reports this started proximally 2 to 3 days ago. Does report dry cough. Denies lower extremity pain or swelling or chest pain. Denies fevers or chills. Reports he was seen at primary care earlier today and told he had low oxygen saturation to 88 on room air and presented emergency department. Review of Systems Narrative: - CONSTITUTIONAL: Denies weight loss, fever and chills. - HEENT: Denies changes in vision and hearing. - RESPIRATORY: As above - CV: Denies palpitations and CP. - GI: Denies abdominal pain, nausea, vomiting and diarrhea. - : Denies dysuria and urinary frequency. - MSK: Denies myalgia and joint pain. - SKIN: Denies rash and pruritus. - NEUROLOGICAL: Denies headache, weakness, numbness and syncope. - PSYCHIATRIC: Denies suicidal ideation [facility] ED PFSH: Medical History (Updated 06/17/21 @ 12:32 by Wang Palacio MD) Cataract Former smoker quit smoking in 2010 HTN (hypertension) -VSS; continue to monitor vital signs -currently normotensive, will resume HCTZ, hold ACEi Obesity (BMI 30.0-34.9) -Obesity: BMI-32 kg/m2 Obstructive sleep apnea Surgical History S/P left knee arthroscopy hx of L knee arthroscopy for torn meniscus in 2006 Family History Mother CAD (coronary artery disease) Stroke Brother CAD (coronary artery disease) Social History Smoking and tobacco status: former smoker Quit status (tobacco): has quit using tobacco Alcohol intake: never Lives independently: Yes Household members: spouse Marital status: Current occupational status: retired Physical Exam Narrative: EXAM NARRATIVE: - GENERAL: Alert and oriented x 3. No acute distress. Well-nourished. - EYES: EOMI. Anicteric. - HENT: Atraumatic, no C-spine tenderness. Moist mucous membranes. No scleral icterus. No cervical lymphadenopathy. - LUNGS: Mild bilateral wheezing. No accessory muscle use. Equal lung sounds bilaterally. No respiratory distress. - CARDIOVASCULAR: Regular rate and rhythm. No murmur. No JVD. - ABDOMEN: Soft, non-tender and non-distended. Negative CVA tenderness bilaterally, no rebound or guarding, negative Elizabeth sign. No palpable masses. - EXTREMITIES: No edema. Non-tender. - SKIN: No rashes or lesions. Warm. - NEUROLOGIC: No meningismus or focal neurological deficits. CN II-XII grossly intact. - PSYCHIATRIC: Cooperative. Appropriate mood and affect. Course Vital Signs: Vital signs: Vital Signs Temperature 98.1 F 06/17/21 09:45 Pulse Rate 86 06/17/21 12:02 Respiratory Rate 16 06/17/21 12:02 Blood Pressure 153/81 06/17/21 10:30 Pulse Oximetry 96 06/17/21 12:02 MDM - SOB/Dyspnea MDM Narrative: Medical decision making narrative: 70-year-old male presented shortness of breath. Physical exam does reveal bilateral wheezing. Initially does require 1 L by nasal cannula saturation in the 90s however after albuterol and steroids he was ambulated without desaturation satting well on room air. EKG and troponin do not reveal any sign of acute ischemia or acute abnormality. X-ray does not reveal pneumothorax or consolidation. Remainder of lab work is unremarkable. Prescription for albuterol and steroids provided. At this time I believe patient would be safe for discharge and outpatient follow-up. Return precautions provided. Plan was reviewed with the patient who expressed understanding. Questions answered. Patient will follow up with PCP. Patient discharged in stable condition. Lab Data: Labs: Lab Results 06/17/21 06/17/21 06/17/21 10:25 10:25 10:25 WBC 8.0 10^3/uL 10^3/ uL (4.0-10.0) RBC 4.77 10^6/uL 10^6 /uL (4.1-5.3) Hgb 13.9 g/dL g/dL (11.7-16.6) Hct 43.9 % % (42.0-52.0) MCV 92.0 fl fl (80-94) MCH 29.1 pg pg (28.0-34.0) MCHC 31.7 g/dL g/dL (30.0-36.0) RDW 12.3 % % (12.1-15.1) Plt Count 270 10^3/cmm 10^3 /cmm (130-400) MPV 10.8 fL H fL (7.4-10.4) Neut % (Auto) 68.6 % % Lymph % (Auto) 15.3 % % [place] % (Auto) 10.6 % % Eos % (Auto) 3.8 % % Baso % (Auto) 1.4 % % Neut # (Auto) 5.50 10^3/uL 10^3 /uL (1.8-7.7) Lymph # (Auto) 1.2 10^3/uL 10^3/ uL (0.8-4.8) [place] # (Auto) 0.9 10^3/uL 10^3/ uL (0.2-0.9) Eos # (Auto) 0.3 10^3/uL 10^3/ uL (0.0-0.8) Baso # (Auto) 0.1 10^3/uL 10^3/ uL (0.0-0.1) Nucleated RBC % (a uto) 0 % % Nucleated RBCs # 0.0 /100WBC /100W BC PT 14.10 SECONDS SEC ONDS (12.1-14.9) INR 1.06 (0.8-1.2) APTT 30.5 SECONDS SECO NDS (23.9-36.7) D-Dimer 0.28 ug/mIFEU ug/ mIFEU (0-0.59) Sodium 139 mmol/L mmol/L (136-145) Potassium 4.5 mmol/L mmol/L (3.5-5.1) Chloride 99 mmol/L mmol/L (98-107) Carbon Dioxide 27 mmol/L mmol/L (22-29) Anion Gap 17.5 (5-19) BUN 11 mg/dL mg/dL (8-23) Creatinine 0.7 mg/dL mg/dL (0.7-1.2) GFR Calculation 111.5 mL/min mL/m in (90-130) Glucose 97 mg/dL mg/dL (65-115) Calculated Osmolal ity 287 mOsm/kg mOsm/ kg (285-295) Calcium 7.8 mg/dL L mg/dL (8.5-10.5) Total Bilirubin 0.2 mg/dL mg/dL (0.15-1.2) AST 18 U/L U/L (0-40) ALT 12 U/L U/L (0-41) Alkaline Phosphata se 85 IU/L IU/L (40-130) Troponin T Baselin e NT-Pro-B Natriuret Pep 49 pg/mL pg/mL (0-125) Total Protein 6.1 g/dL L g/dL (6.6-8.7) Albumin 3.7 g/dL g/dL (3.5-5.2) Globulin 2.4 g/dL g/dL (1.3-4.6) SARS-CoV-2 Ag (Rap id) 06/17/21 06/17/21 10:25 10:25 WBC RBC Hgb Hct MCV MCH MCHC RDW Plt Count MPV Neut % (Auto) Lymph % (Auto) [place] % (Auto) Eos % (Auto) Baso % (Auto) Neut # (Auto) Lymph # (Auto) [place] # (Auto) Eos # (Auto) Baso # (Auto) Nucleated RBC % (a uto) Nucleated RBCs # PT INR APTT D-Dimer Sodium Potassium Chloride Carbon Dioxide Anion Gap BUN Creatinine GFR Calculation Glucose Calculated Osmolal ity Calcium Total Bilirubin AST ALT Alkaline Phosphata se Troponin T Baselin e 6 ng/L ng/L (0-15) NT-Pro-B Natriuret Pep Total Protein Albumin Globulin SARS-CoV-2 Ag (Rap id) Negative (Negative) EKG Data^: EKG 1: Other EKG Comments: Sinus rhythm, rate of 94, no sign of acute ischemia or other acute abnormality. Discharge Plan Discharge Patient Disposition: Home Clinical Impression: COPD exacerbation Condition: Stable Prescriptions: New prednisone 50 mg tablet 50 mg PO DAILY 5 Days Qty: 5 RF: 0 albuterol sulfate 90 mcg/actuation HFA aerosol inhaler 1 inh inhalation Q6H PRN (Reason: shortness of breath or wheezing) Qty: 8.5 RF: 0 No Action Aspir-81 81 mg Tablet,Delayed Release (Dr/Ec) 81 mg PO EVERY OTHER DAY RF: 0 tamsulosin 0.4 mg capsule 0.4 mg PO QAM RF: 0 enalapril-hydrochlorothiazide 5-12.5 mg tablet 1 tab PO QAM RF: 0 Discharge Orders: Discharge ED (Routine); Ordered 06/17/21 Ordered By: Wang Palacio Referrals: Milla Kan MD [Primary Care Provider] - 1-3 days Patient Instructions: COPD, Emphysema (ED), Dyspnea (ED), Opioid Safety Coding Level of Care Code ED Grounds Foreman for Analy Donahue
--- NOTE | 2021-06-17 10:02 | PC.NURSE ---
pt placed on 2 l spo2 via nc
--- NOTE | 2021-06-17 10:04 | XR_ITS ---
WS: [id number] Exam: XR chest 1V portable [id number] Date/Time of Exam: 06/17/2021 10:17 AM Reason For Exam: sob Comparison 07/18/2019. The lungs are clear and fully expanded. Chronic pleural thickening at the costophrenic angles. There is hyperinflation. Normal cardiomediastinal silhouette. Regional bony structures are intact. XR/XR chest 1V portable [id number] IMPRESSION: 1. Pulmonary hyperinflation which may indicate COPD. No acute cardiopulmonary p rocess. 2. Chronically blunted costophrenic angle suggesting pleural thickening.
--- NOTE | 2021-06-17 10:05 | ECG_ITS ---
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 Measurements Intervals [place] Rate: 94 P: 26 [place]: 144 QRS: 40 QRSD: 95 T: 62 QT: 351 QTc: 440 Interpretive Statements SINUS RHYTHM Compared to ECG 07/18/2019 17:18:48 Myocardial infarct finding no longer present Electronically Signed On 06-19-2021 7:41:27 DIETETICS DIRECTOR by Lucho De Oliveira M.D. [id number] f
[2021-06-17 10:30] VITALS: BP 153/81; PULSE 85; RESP 16; RESP 87; O2SAT 96; O2SAT 97
[2021-06-17 10:31] LABS: Basophils # 0.1 10^3/uL (0.0-0.1); Basophils % 1.4 %; Eosinophils # 0.3 10^3/uL (0.0-0.8); Eosinophils % 3.8 %; Hematocrit 43.9 % (42.0-52.0); Hemoglobin 13.9 g/dL (11.7-16.6); Lymphocytes # 1.2 10^3/uL (0.8-4.8); Lymphocytes % 15.3 %; Mean Corpuscular HGB Conc 31.7 g/dL (30.0-36.0); Mean Corpuscular Hemoglobin 29.1 pg (28.0-34.0); Mean Platelet Volume 10.8 fL (7.4-10.4); Monocytes # 0.9 10^3/uL (0.2-0.9); Monocytes % 10.6 %; Neutrophils % 68.6 %; Nucleated Red Blood Cells % 0 %; Platelet Count 270 10^3/cmm (130-400); Red Blood Count 4.77 10^6/uL (4.1-5.3); Red Cell Distribution Width 12.3 % (12.1-15.1)
[2021-06-17 10:49] LABS: INR 1.06 (0.8-1.2)
[2021-06-17 10:50] LABS: Partial Thromboplastin Time 30.5 SECONDS (23.9-36.7); SARS Covid-2 Antigen Negative (Negative)
[2021-06-17 10:52] LABS: D Dimer 0.28 ug/mIFEU (0-0.59)
[2021-06-17 10:55] LABS: Troponin(5th) Baseline 6 ng/L (0-15)
[2021-06-17 11:01] VITALS: PULSE 86; RESP 18; O2SAT 95
[2021-06-17 11:04] LABS: Alanine Aminotransferase 12 U/L (0-41); Albumin Level 3.7 g/dL (3.5-5.2); Alkaline Phosphatase 85 IU/L (40-130); Blood Urea Nitrogen 11 mg/dL (8-23); Calcium 7.8 mg/dL (8.5-10.5); Carbon Dioxide 27 mmol/L (22-29); Chloride 99 mmol/L (98-107); Globulin 2.4 g/dL (1.3-4.6); Glomerular Filtration Rate 111.5 mL/min (90-130); Glucose 97 mg/dL (65-115); NT Pro B Type Natriuretic Pept 49 pg/mL (0-125); Osmolality Calculated 287 mOsm/kg (285-295); Sodium 139 mmol/L (136-145); Total Bilirubin 0.2 mg/dL (0.15-1.2); Total Protein 6.1 g/dL (6.6-8.7)
[2021-06-17 11:08] LABS: Anion Gap 17.5 (5-19); Aspartate Amino Transferase 18 U/L (0-40); Potassium 4.5 mmol/L (3.5-5.1)
[2021-06-17 11:58] VITALS: O2SAT 91
[2021-06-17 12:02] VITALS: PULSE 86; RESP 16; O2SAT 96
[2021-06-17 12:45] VITALS: O2SAT 97
[2021-06-17 12:45] LABS: Troponin 5 2HR 7.73 ng/L (0-15); Troponin 5 2HR Delta 1.73 ABS# (0-10)
== END 2021-06-17 12:46 | disposition home or self-care (01) ==
PROVIDERS: Emergency Provider Emergency Medicine; PCP Family Medicine
DX: J44.1 Chronic obstructive pulmonary disease with (acute) exacerbation (principal); Z79.82 Long term (current) use of aspirin; I10 Essential (primary) hypertension; Z87.891 Personal history of nicotine dependence; Z20.822 Contact with and (suspected) exposure to COVID-19
CPT/HCPCS: 71045; 80053; 83880; 84484; 85025; 85378; 85610; 85730; 87426; 93005; 96374; 99284; J2930; J3535

== ENCOUNTER → 2021-09-01 11:22 | Day surgery (SDC) | payer MEDICARE, OTHER, SELFPAY ==
[2021-09-01 11:50] VITALS: BP 160/85; PULSE 82; RESP 18; TEMP 36.6; O2SAT 93
[2021-09-01 12:03] VITALS: BMI 31.9
[2021-09-01 12:51] VITALS: BP 147/81; PULSE 86; RESP 16; TEMP 36.7; O2SAT 92
[2021-09-01 13:45] VITALS: BP 138/61; PULSE 84; RESP 17; TEMP 37.5; O2SAT 92
== END ==
PROVIDERS: PCP Family Medicine; Visit Provider Nurse Practitioner
DX: U07.1 COVID-19 (principal)
CPT/HCPCS: 96365

== ENCOUNTER 2021-12-28 20:00 | Outpatient (CLI) | payer MEDICARE, OTHER, SELFPAY | END 2021-12-28 20:01 | disposition home or self-care (01) | LOC: SLEEP 12-29 05:26 | PROVIDERS: PCP Family Medicine; Visit Provider Physician Assistant Medical | DX: G47.33 Obstructive sleep apnea (adult) (pediatric) (principal); G47.36 Sleep related hypoventilation in conditions classified elsewhere | CPT/HCPCS: 95810 ==

== ENCOUNTER 2022-02-01 13:27 | Outpatient (CLI) | payer MEDICARE, OTHER, SELFPAY ==
--- NOTE | 2022-02-01 14:08 | ECG_ITS ---
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 Measurements Intervals [place] Rate: 85 P: 55 [place]: 146 QRS: 1 QRSD: 106 T: 61 QT: 360 QTc: 430 Interpretive Statements SINUS RHYTHM Compared to ECG 06/17/2021 09:52:04 No significant changes Electronically Signed On 02-01-2022 21:41:36 CDT by Ro Santiago M.D. [id number]
== END 2022-02-01 13:28 | disposition home or self-care (01) ==
PROVIDERS: PCP Family Medicine; Visit Provider Specialist
DX: G47.33 Obstructive sleep apnea (adult) (pediatric) (principal)
CPT/HCPCS: 93005

== ENCOUNTER 2022-02-28 08:40 | Outpatient (CLI) | payer MEDICARE, OTHER, SELFPAY ==
--- NOTE | 2022-02-28 08:56 | ECG_ITS ---
[facility] Test Date: 2022-02-28 Pat Name: Elton Lal Department: Room: Gender: Male Health Advisor: : 1950 Requested By: Mikel Connelly Order Number: [id number] Morelia MD: Ro Santiago M.D. Measurements Intervals [place] Rate: 70 P: 25 ME: 155 QRS: 30 QRSD: 85 T: 54 QT: 379 QTc: 409 Interpretive Statements SINUS RHYTHM SEPTAL MYOCARDIAL INFARCTION , PROBABLY OLD [40+ ms Q WAVE IN V1/V2] Compared to ECG 02/01/2022 13:56:40 Myocardial infarct finding now present Electronically Signed On 03-01-2022 7:33:17 CDT by Ro Santiago M.D. [id number] f
== END 2022-02-28 08:41 | disposition home or self-care (01) ==
LOC: RT 08:44
PROVIDERS: PCP Family Medicine; Visit Provider Specialist
DX: G47.33 Obstructive sleep apnea (adult) (pediatric) (principal)
CPT/HCPCS: 93005

== ENCOUNTER 2023-01-04 20:00 | Outpatient (CLI) | payer MEDICARE, OTHER, SELFPAY | END 2023-01-04 20:01 | disposition home or self-care (01) | LOC: SLEEP 01-05 04:47 | PROVIDERS: PCP Family Medicine; Visit Provider Specialist | DX: G47.33 Obstructive sleep apnea (adult) (pediatric) (principal); R09.02 Hypoxemia; G47.61 Periodic limb movement disorder | CPT/HCPCS: 95810 ==

== ENCOUNTER → 2023-11-02 07:57 | Outpatient (BNVA) | payer MEDICARE, OTHER, SELFPAY | PROVIDERS: PCP Family Medicine; Visit Provider Surgery | DX: K42.9 Umbilical hernia without obstruction or gangrene (principal); Z80.0 Family history of malignant neoplasm of digestive organs; Z86.010 Personal history of colon polyps | CPT/HCPCS: 99204 ==

== ENCOUNTER 2023-11-15 07:50 | Day surgery (SDC) | payer MEDICARE, OTHER, SELFPAY ==
[2023-11-15 08:06] VITALS: BP 132/94; PULSE 91; RESP 18; TEMP 36.3; O2SAT 88; BMI 34.2
[2023-11-15] MEDS: sodium chloride 0.9% 1,000 ML 30 ML IV (08:18)
--- NOTE | 2023-11-15 08:30 | W.PM.OPSUD ---
Surgery/Procedure H&P Update DATE OF PROCEDURE: November 15, 2023 DATE H&P PERFORMED: 11/02/23 H&P UPDATE INFORMATION: I have reviewed H&P completed within last 30 days, I have examined patient prior to procedure and No changes to prior documentation PLANNED PROCEDURE: Operation Date: 11/15/23 09:00 Proposed Procedures p Colonoscopy 83085, G0105, Z80.0, Z86.010(Not Applicable) - Yousuf Fish DO
--- NOTE | 2023-11-15 08:32 | ANES.PREANE2 ---
Pre-Anesthetic Assessment Height/Weight: Height 1.7 m Weight 99.337 kg Temp Pulse Resp BP Pulse Ox O2 Del Method 97.3 F L 91 18 132/94 88 L Room Air 11/15/23 08:06 11/15/23 08:06 11/15/23 08:06 11/15/23 08:06 11/15/23 08:06 11/15/23 08:06 Preop Diagnosis: screening Operation Date: 11/15/23 09:00 Proposed Procedures p Colonoscopy 99903, G0105, Z80.0, Z86.010(Not Applicable) - Yousuf Fish DO Familial anesthetic complications: none Was Beta Carmelo taken within 24 hours: N/A Was Clonidine taken within 24 hours: N/A Last intake: Intake Last Liquid Date 11/14/23 Last Liquid Time 21:00 Last Solid Date 11/13/23 Last Solid Time 17:30 Last Intake: 21:00 Social No alcohol and No tobacco Exam alert, oriented x 3, clear to auscultation bilaterally and regular rate & rhythm Airway Submandibular: within normal limits Cervical ROM: within normal limits Mallampati: Class I Dentition: false Pulmonary Chronic Obstructive Pulmonary Disease, Exertional Dyspnea and Sleep Apnea CV/HEM Hypertension neg stress None reported Hepatic None reported GI None reported Metabolic None reported Musc/skel Lower Back Pain Neuropsych None reported Anesthetic Plan ASA status: 3 Anesthesia: MAC Risk of > 500 ml blood loss (7ml/kg in children): No Medications/Allergies Home Medications Medication Instructions Recorded Confirmed Last Taken Type enalapril 5 mg-hydrochlorothiazide 1 tab PO QAM 07/18/19 11/15/23 11/14/23 History 12.5 mg tablet albuterol sulfate 90 mcg/actuation 1 inh inhalation Q6H PRN shortness 06/17/21 11/15/23 2 Months Ago Rx aerosol inhaler of breath or wheezing #8.5 grams ~09/13/23 aspirin 81 mg tablet,delayed 81 mg PO EVERY OTHER DAY 06/17/21 11/15/23 11/12/23 History release tamsulosin 0.4 mg capsule 0.4 mg PO QAM 06/17/21 11/15/23 11/14/23 History Allergies Allergy/AdvReac Type Severity Reaction Status Date / Time No Known Drug Allergies Allergy Unknown Verified 11/15/23 08:03 Current Medications Generic Name Dose Route Start Last Admin Trade Name Freq PRN Reason Stop Dose Admin Sodium Chloride 1,000 mls @ 30 mls/hr 11/15/23 08:00 11/15/23 08:18 Sodium Chloride 0.9% IV 11/16/23 07:59 30 mls/hr .Q24H JOSE Administration PFSH Anesthesia Medical History (Updated 11/02/23 @ 09:20 by Yousuf Fish DO) History of colon polyps Family history of colon cancer Cataract Obstructive sleep apnea Former smoker quit smoking in 2010 Obesity (BMI 30.0-34.9) -Obesity: BMI-32 kg/m2 HTN (hypertension) -VSS; continue to monitor vital signs -currently normotensive, will resume HCTZ, hold ACEi Surgical History S/P left knee arthroscopy hx of L knee arthroscopy for torn meniscus in 2006 Family History Mother CAD (coronary artery disease) Stroke Brother CAD (coronary artery disease) Social History Smoking and tobacco/nicotine status: former use of tobacco/nicotine Quit status (tobacco/nicotine): has quit using Alcohol intake: never Substance/Drug Use: never Lives independently: Yes Household members: spouse Marital status: Current occupational status: retired Data Anesthesia Cardiac Studies: Sestamibi Stress Test (Cardiology) 07/18/19
[2023-11-15 09:05] VITALS: BP 154/83; PULSE 74; RESP 16; TEMP 36.4; O2SAT 95
[2023-11-15 09:20] VITALS: BP 152/88; PULSE 75; RESP 16; O2SAT 91
[2023-11-15 09:40] VITALS: BP 130/66; PULSE 72; RESP 18; O2SAT 91
--- NOTE | 2023-11-15 09:55 | ANE.PACU2 ---
Inpatient post-anesthesia follow up: Airway intact: Yes Vital signs: Temperature 97.6 F Pulse Rate 72 Respiratory Rate 18 Blood Pressure 130/66 Pulse Oximetry 91 Oxygen Delivery Me thod Room Air Oxygen Flow Rate Fraction of Inspir ed Oxygen Hydration adequate: Yes Nausea and vomiting: No Pain level: 1 Mental status: Baseline
== END 2023-11-15 09:59 | disposition home or self-care (01) ==
PROVIDERS: PCP Family Medicine; Visit Provider Surgery
PROC: 0DJD8ZZ Inspection of Lower Intestinal Tract, Via Natural or Artificial Opening Endoscopic (ICD-10-PCS; CPT 45378; principal; 2023-11-15 09:00)
DX: Z12.11 Encounter for screening for malignant neoplasm of colon (principal); Z80.0 Family history of malignant neoplasm of digestive organs; Z86.010 Personal history of colon polyps; D12.2 Benign neoplasm of ascending colon; D12.5 Benign neoplasm of sigmoid colon; D12.8 Benign neoplasm of rectum; K42.9 Umbilical hernia without obstruction or gangrene; Z79.82 Long term (current) use of aspirin; G47.33 Obstructive sleep apnea (adult) (pediatric); Z87.891 Personal history of nicotine dependence; I10 Essential (primary) hypertension; E66.9 Obesity, unspecified; Z68.34 Body mass index [BMI] 34.0-34.9, adult; J44.9 Chronic obstructive pulmonary disease, unspecified
CPT/HCPCS: 45385; 88305; J2704; J7030

== ENCOUNTER 2023-11-21 06:39 | Day surgery (SDC) | payer MEDICARE, OTHER, SELFPAY ==
[2023-11-21] VITALS (13 sets, daily range): BP systolic 113–159; BP diastolic 65–104; PULSE 77–88; RESP 10–31; TEMP 36.1–36.6; O2SAT 88–96; BMI 34.1
--- NOTE | 2023-11-21 06:59 | W.PM.OPSUD ---
Surgery/Procedure H&P Update DATE OF PROCEDURE: November 21, 2023 DATE H&P PERFORMED: 11/02/23 H&P UPDATE INFORMATION: I have reviewed H&P completed within last 30 days, I have examined patient prior to procedure and No changes to prior documentation PLANNED PROCEDURE: Operation Date: 11/21/23 08:25 Proposed Procedures p Laparoscopic Umbilical Hernia Repair 92543, K42.9(Not Applicable) - Yousuf Fish,
[2023-11-21] MEDS: sodium chloride 0.9% 1,000 ML 30 ML IV (07:00)
--- NOTE | 2023-11-21 07:11 | ANES.PREANE2 ---
Pre-Anesthetic Assessment Height/Weight: Height 1.7 m Weight 98.883 kg Temp Pulse Resp BP Pulse Ox O2 Del Method 97.8 F 85 17 143/87 88 L Room Air 11/21/23 06:57 11/21/23 06:57 11/21/23 06:57 11/21/23 06:57 11/21/23 06:57 11/21/23 07:00 Operation Date: 11/21/23 08:25 Proposed Procedures p Laparoscopic Umbilical Hernia Repair 29717, K42.9(Not Applicable) - Yousuf Fish DO Familial anesthetic complications: none Was Beta Carmelo taken within 24 hours: N/A Was Clonidine taken within 24 hours: N/A Last intake: Intake Last Liquid Date 11/20/23 Last Liquid Time 22:00 Last Solid Date 11/20/23 Last Solid Time 22:00 Social No alcohol and No tobacco (h/o smoking) Exam alert, oriented x 3, clear to auscultation bilaterally and regular rate & rhythm Decreased breath sounds but clear, preop O2sat 88% on room air--breathing tx Airway Submandibular: within normal limits Cervical ROM: within normal limits Mallampati: Class II Dentition: false CV/HEM Hypertension Metabolic Morbid Obesity Anesthetic Plan ASA status: 3 Anesthesia: General Medications/Allergies Home Medications Medication Instructions Recorded Confirmed Last Taken Type enalapril 5 mg-hydrochlorothiazide 1 tab PO QAM 07/18/19 11/20/23 11/20/23 History 12.5 mg tablet albuterol sulfate 90 mcg/actuation 1 inh inhalation Q6H PRN shortness 06/17/21 11/20/23 2 Months Ago Rx aerosol inhaler of breath or wheezing #8.5 grams ~09/13/23 aspirin 81 mg tablet,delayed 81 mg PO EVERY OTHER DAY 06/17/21 11/20/23 11/19/23 History release tamsulosin 0.4 mg capsule 0.4 mg PO QAM 06/17/21 11/20/23 11/20/23 History hydrocortisone 2.5 % topical cream 1 applic CA QID 3 weeks #30 grams 11/15/23 11/20/23 Unknown Rx with perineal applicator (Procto-Med ) Allergies Allergy/AdvReac Type Severity Reaction Status Date / Time No Known Drug Allergies Allergy Unknown Verified 11/15/23 08:03 [facility] Anesthesia Medical History (Updated 11/02/23 @ 09:20 by Yousuf Fish DO) History of colon polyps Family history of colon cancer Cataract Obstructive sleep apnea Former smoker quit smoking in 2010 Obesity (BMI 30.0-34.9) -Obesity: BMI-32 kg/m2 HTN (hypertension) -VSS; continue to monitor vital signs -currently normotensive, will resume HCTZ, hold ACEi Surgical History S/P left knee arthroscopy hx of L knee arthroscopy for torn meniscus in 2006 Family History Mother CAD (coronary artery disease) Stroke Brother CAD (coronary artery disease) Social History Smoking and tobacco/nicotine status: former use of tobacco/nicotine Quit status (tobacco/nicotine): has quit using Alcohol intake: never Substance/Drug Use: never Lives independently: Yes Household members: spouse Marital status: Current occupational status: retired Data Anesthesia Cardiac Studies: Sestamibi Stress Test (Cardiology) 07/18/19
[2023-11-21] MEDS: albuterol 2.5 mg/3 mL Neb INHALATION (07:27)
[2023-11-21] MEDS: ceFAZolin 2,000 MG in sodium chloride 0.9% (plus) 50 ML 100 MG IV (07:42)
[2023-11-21] MEDS: lidocaine-epi 2% PF 1:200,000 20 mL SDV XX (08:16)
--- NOTE | 2023-11-21 08:43 | P.OP_ITS ---
Operative Report Date of procedure: November 21, 2023 Pre-op diagnosis: Umbilical hernia Post-op diagnosis: same Procedure done: Laparoscopic repair of umbilical hernia with mesh Implants: 11 inch round Ventralight mesh Specimens removed/disposition: Hernia sac Surgeon: Yousuf Fish DO Anesthesia: General and Local Estimated blood loss (mL): 5 Complications: None apparent Brief History: This very pleasant 73-year-old gentleman who presented my office with an umbilical hernia. Laparoscopic repair with mesh was indicated. The risk and benefits were explained and documented. Procedure: Patient was wheeled into the operative room and placed on the OR table in a s upine position. Abdomen was inspected prepped and draped in usual sterile fashion. Time-out was performed and all present were in agreement. A 15 blade scalp was used to make a 5 millimeter incision left upper quadrant. A Veress needle was placed into the incision and intra-abdominal insufflation was brought to 15 millimeters of mercury. A 12 millimeter trocar was placed into the left lower quadrant. The energy but device was then used to cut out the hernia sac. The hernia defect measured 1.5 cm in diameter. An 11 cm Ventralight mesh was placed into the abdomen and brought up through the umbilicus using an the Nasir-Jazmine. The mesh was then tacked in place in a double crown fashion. The skeleton of the mesh was removed via the left lower quadrant. The hernia sac was then removed from the abdomen via the left lower quadrant. The left lower quadrant port site was closed with an 0 Vicryl suture in a Nasir-Jazmine in a waakar-dw-nifrp fashion. Incisions were closed with 4 O Vicryl in a subcuticular interrupted fashion. Skin glue was applied. A dressing that included cotton balls and a Tegaderm was placed over the umbilicus. Patient tolerated the procedure well.
[2023-11-21] MEDS: fentaNYL 50 mcg/mL INJ 2mL IVP (09:02)
--- NOTE | 2023-11-21 09:11 | PC.NURSE ---
0910 - Anesthesia at side reviewing vital signs - anesthesia ok with 02 sat range on n/c
[2023-11-21] MEDS: HYDROcodone-acetaminophen 7.5-325 mg Tablet 1 TAB PO (09:44)
--- NOTE | 2023-11-21 10:49 | PC.NURSE ---
per Dr. Wells with anesthesia patient okay to discharge after his assessment of patient, oxygen 88% on Ra, pt arrival to ops oxygen was also 88% on RA, patient denies shortness of breath and no s/sx of resps distress.
--- NOTE | 2023-11-21 13:46 | ANE.PACU2 ---
Inpatient post-anesthesia follow up: Vital signs: Temperature 97.8 F Pulse Rate 88 Respiratory Rate 20 Blood Pressure 126/73 Pulse Oximetry 88 Oxygen Delivery Me thod Room Air Oxygen Flow Rate 3 Fraction of Inspir ed Oxygen Hydration adequate: Yes Nausea and vomiting: No Pain level: controlled Mental status: Baseline Additional Comments: no apparent anesthetic complcations noted
== END 2023-11-21 10:30 | disposition home or self-care (01) ==
PROVIDERS: PCP Family Medicine; Visit Provider Surgery
PROC: 0WQF4ZZ Repair Abdominal Wall, Percutaneous Endoscopic Approach (ICD-10-PCS; CPT 49591; principal; 2023-11-21 08:25)
DX: K42.9 Umbilical hernia without obstruction or gangrene (principal)
CPT/HCPCS: 49591; 88302; 94640; C1781; J0131; J0690; J1100; J1200; J2371; J2405; J2704; J3010; J3490; J7030; J7613

== ENCOUNTER 2023-12-05 09:42 | Outpatient (CLI) | payer MEDICARE, OTHER, SELFPAY ==
--- NOTE | 2023-12-05 09:48 | XR_ITS ---
WS: [id number] Exam: XR chest 2V* [id number] Date/Time of Exam: 12/05/2023 9:48 AM Reason For Exam: COPD Comparison 06/17/2021. The lungs are hyperinflated and clear. Chronic pleural thickening at the LEFT costophrenic angle. Nor mal cardiomediastinal silhouette. A neurostimulator overlies the anterior RIGHT chest with the lead e xtending into the RIGHT paracervical region. Bony structures of the chest are unremarkable. XR/XR chest 2V* [id number] IMPRESSION: 1. Pulmonary hyperinflation which may indicate obstructive lung disease. Chroni c left-sided pleural thickening. 2. No acute process.
== END 2023-12-05 09:43 | disposition home or self-care (01) ==
LOC: RAD 09:45
PROVIDERS: PCP Family Medicine; Visit Provider Family Medicine
DX: J44.9 Chronic obstructive pulmonary disease, unspecified (principal); R09.02 Hypoxemia; J98.4 Other disorders of lung
CPT/HCPCS: 71046

== ENCOUNTER → 2023-12-08 09:13 | Outpatient (BNVA) | payer MEDICARE, OTHER, SELFPAY | PROVIDERS: PCP Family Medicine; Visit Provider Surgery | DX: K64.8 Other hemorrhoids; Z98.890 Other specified postprocedural states; Z87.19 Personal history of other diseases of the digestive system; D37.4 Neoplasm of uncertain behavior of colon | CPT/HCPCS: 99024; 99214 ==

== ENCOUNTER → 2025-03-31 13:53 | Outpatient (BNVA) | payer MEDICARE, OTHER, SELFPAY | PROVIDERS: PCP Family Medicine; Visit Provider Family Medicine | DX: R35.0 Frequency of micturition (principal); R30.0 Dysuria | CPT/HCPCS: 81000; 87086 ==

== ENCOUNTER 2025-04-09 13:35 | Outpatient (CLI) | payer MEDICARE, OTHER, SELFPAY ==
--- NOTE | 2025-04-09 14:00 | USR_ITS ---
PROCEDURE INFORMATION: Exam: US Retroperitoneal, Complete, Kidneys and Bladder Exam date and time: 04/09/2025 2:06 PM Age: 74 years old Clinical indication: Other: Urinary frequency TECHNIQUE: Imaging protocol: Real-time ultrasound of the retroperitoneum with image documentation. Complete exam focused on the bilateral kidneys and urinary bladder. COMPARISON: l spine FINDINGS: Right kidney: Right kidney measures 11.0 x 5.1 x 5.1 cm with good corticomedullary differentiation and no hydro nephrosis. The renal cortex measures 1.3 cm and is within normal limits. Left kidney: left kidney measures 0.9 x 7.4 x 5.2 cm with good corticomedullary differentiation and no hydronephrosis. The renal cortex measures 1.6 cm and is within normal limits. Urinary bladder: Bilateral ureteral jets are visualized. The urinary bladder is visualized in the pre void volume is 288.8 mL, the post void volume is 72.9 mL which is within normal limits. Prostate: The prostate gland is unremarkable. Aorta: Aorta is within normal limits. US/US renal BI w/PV bladder [id number] IMPRESSION: Unremarkable kidneys and bladder.
== END 2025-04-09 13:36 | disposition home or self-care (01) ==
PROVIDERS: PCP Family Medicine; Visit Provider Family Medicine
DX: R33.9 Retention of urine, unspecified (principal); N40.0 Benign prostatic hyperplasia without lower urinary tract symptoms
CPT/HCPCS: 76770; 76857

== ENCOUNTER → 2025-05-20 07:14 | Outpatient (BNVA) | payer MEDICARE, OTHER, SELFPAY | PROVIDERS: PCP Family Medicine; Visit Provider Family Medicine | DX: Z51.81 Encounter for therapeutic drug level monitoring (principal); Z13.6 Encounter for screening for cardiovascular disorders; Z13.1 Encounter for screening for diabetes mellitus; Z00.00 Encounter for general adult medical examination without abnormal findings; E55.9 Vitamin D deficiency, unspecified; M62.838 Other muscle spasm; R33.9 Retention of urine, unspecified; E53.8 Deficiency of other specified B group vitamins | CPT/HCPCS: 80053; 80061; 82306; 82607; 83036; 83735; 84153; 85025 ==